=== PATIENT | male | born 1970 | race Two or more races ===

== ENCOUNTER → 2024-04-05 | Outpatient (BNVA) | payer MEDICAID, SELFPAY | END | disposition home or self-care (01) | PROVIDERS: PCP Nurse Practitioner Family; Referring Provider Nurse Practitioner Family; Visit Provider Nurse Practitioner Family | DX: E78.5 Hyperlipidemia, unspecified (principal); I10 Essential (primary) hypertension; R73.03 Prediabetes; Z71.2 Person consulting for explanation of examination or test findings | CPT/HCPCS: 99212; G0463 ==

== ENCOUNTER → 2024-04-06 | Outpatient (BNVA) | payer MEDICAID, SELFPAY | END | disposition home or self-care (01) | PROVIDERS: PCP Nurse Practitioner Family; Referring Provider Nurse Practitioner Family; Visit Provider Nurse Practitioner Family | DX: I10 Essential (primary) hypertension (principal); Z23 Encounter for immunization | CPT/HCPCS: 90471; 90686; 99213 ==

== ENCOUNTER → 2024-06-15 | Outpatient (BNVA) | payer MEDICAID, SELFPAY | END | disposition home or self-care (01) | PROVIDERS: PCP Nurse Practitioner Family; Referring Provider Nurse Practitioner Family; Visit Provider Nurse Practitioner Family | DX: D17.5 Benign lipomatous neoplasm of intra-abdominal organs (principal) | CPT/HCPCS: 99214 ==

== ENCOUNTER → 2024-10-09 | Outpatient (BNVA) | payer MEDICAID, SELFPAY | END | disposition home or self-care (01) | PROVIDERS: PCP Nurse Practitioner Primary Care; Referring Provider Nurse Practitioner Primary Care; Visit Provider Nurse Practitioner Primary Care | DX: Z71.2 Person consulting for explanation of examination or test findings (principal); B96.81 Helicobacter pylori [H. pylori] as the cause of diseases classified elsewhere | CPT/HCPCS: 99212; G0463 ==

== ENCOUNTER → 2024-10-16 | Outpatient (BNVA) | payer MEDICAID, SELFPAY | END | disposition home or self-care (01) | PROVIDERS: PCP Nurse Practitioner Family; Referring Provider Nurse Practitioner Family; Visit Provider Nurse Practitioner Family | DX: Z71.2 Person consulting for explanation of examination or test findings (principal); E78.5 Hyperlipidemia, unspecified; R73.03 Prediabetes; E83.51 Hypocalcemia; I10 Essential (primary) hypertension | CPT/HCPCS: 96372; 99213; A4216; J0696 ==

== ENCOUNTER → 2024-11-09 | Outpatient (BNVA) | payer MEDICAID, SELFPAY | END | disposition home or self-care (01) | PROVIDERS: PCP Nurse Practitioner Family; Referring Provider Nurse Practitioner Family; Visit Provider Nurse Practitioner Family | DX: Z09 Encounter for follow-up examination after completed treatment for conditions other than malignant neoplasm (principal); R10.9 Unspecified abdominal pain; A04.8 Other specified bacterial intestinal infections; N39.0 Urinary tract infection, site not specified; K29.70 Gastritis, unspecified, without bleeding; K21.9 Gastro-esophageal reflux disease without esophagitis | CPT/HCPCS: 99214 ==

== ENCOUNTER → 2024-11-09 | Outpatient (CLI) | payer MEDICAID, SELFPAY ==
--- NOTE | 2024-11-09 10:27 | XR_ITS ---
Examination: Knee, left , 3 views Technique: Knee AP, lateral, oblique 3 views Date and time of exam: November 09, 2024 1039 hours INDICATIONS: Left knee swelling and pain beginning one year ago. FINDINGS: Mild to moderate tricompartment osteoarthritis No fracture Moderate knee effusion IMPRESSION: Mild to moderate tricompartment osteoarthritis
== END | disposition home or self-care (01) ==
PROVIDERS: PCP Nurse Practitioner Family; Referring Provider Nurse Practitioner Family; Visit Provider Nurse Practitioner Family
DX: M17.12 Unilateral primary osteoarthritis, left knee (principal)
CPT/HCPCS: 73562

== ENCOUNTER → 2024-11-13 | Outpatient (BNVA) | payer MEDICAID, SELFPAY | END | disposition home or self-care (01) | PROVIDERS: PCP Nurse Practitioner Family; Referring Provider Nurse Practitioner Family; Visit Provider Nurse Practitioner Family | DX: M17.12 Unilateral primary osteoarthritis, left knee (principal) | CPT/HCPCS: 99212; G0463 ==

== ENCOUNTER → 2024-11-14 | Outpatient (BNVA) | payer MEDICAID, SELFPAY | END | disposition home or self-care (01) | PROVIDERS: PCP Nurse Practitioner Family; Referring Provider Nurse Practitioner Family; Visit Provider Nurse Practitioner Family | DX: N39.0 Urinary tract infection, site not specified (principal); Z71.2 Person consulting for explanation of examination or test findings | CPT/HCPCS: 99212; G0463 ==

== ENCOUNTER → 2024-11-27 | Outpatient (BNVA) | payer MEDICAID, SELFPAY | END | disposition home or self-care (01) | PROVIDERS: PCP Nurse Practitioner Family; Referring Provider Nurse Practitioner Family; Visit Provider Nurse Practitioner Family | DX: M17.12 Unilateral primary osteoarthritis, left knee (principal); Z28.21 Immunization not carried out because of patient refusal; Z23 Encounter for immunization | CPT/HCPCS: 90471; 90677; 99214; G0009 ==

== ENCOUNTER → 2024-11-28 | Outpatient (BNVA) | payer MEDICAID, SELFPAY | END | disposition home or self-care (01) | PROVIDERS: PCP Nurse Practitioner Family; Referring Provider Nurse Practitioner Family; Visit Provider Nurse Practitioner Family | DX: Z71.2 Person consulting for explanation of examination or test findings (principal); N39.0 Urinary tract infection, site not specified | CPT/HCPCS: 99212; G0463 ==

== ENCOUNTER → 2024-12-01 | Outpatient (BNVA) | payer MEDICAID, SELFPAY | END | disposition home or self-care (01) | PROVIDERS: PCP Nurse Practitioner Primary Care; Referring Provider Nurse Practitioner Primary Care; Visit Provider Nurse Practitioner Primary Care | DX: A04.8 Other specified bacterial intestinal infections (principal) | CPT/HCPCS: 99213 ==

== ENCOUNTER → 2024-12-14 | Outpatient (BNVA) | payer MEDICAID, SELFPAY | END | disposition home or self-care (01) | PROVIDERS: PCP Nurse Practitioner Family; Referring Provider Nurse Practitioner Family; Visit Provider Nurse Practitioner Family | DX: Z71.2 Person consulting for explanation of examination or test findings (principal); N39.0 Urinary tract infection, site not specified | CPT/HCPCS: 99212; G0463 ==

== ENCOUNTER → 2025-01-04 | Outpatient (BNVA) | payer MEDICAID, SELFPAY | END | disposition home or self-care (01) | PROVIDERS: PCP Nurse Practitioner Family; Referring Provider Nurse Practitioner Family; Visit Provider Nurse Practitioner Family | DX: Z71.2 Person consulting for explanation of examination or test findings (principal) | CPT/HCPCS: 99212; G0463 ==

== ENCOUNTER → 2025-01-17 | Outpatient (BNVA) | payer MEDICAID, SELFPAY | END | disposition home or self-care (01) | PROVIDERS: PCP Nurse Practitioner Family; Referring Provider Nurse Practitioner Family; Visit Provider Nurse Practitioner Family | DX: E78.5 Hyperlipidemia, unspecified (principal); I10 Essential (primary) hypertension | CPT/HCPCS: 99213 ==

== ENCOUNTER → 2025-02-06 | Outpatient (BNVA) | payer MEDICAID, SELFPAY | END | disposition home or self-care (01) | PROVIDERS: PCP Nurse Practitioner Primary Care; Referring Provider Nurse Practitioner Primary Care; Visit Provider Nurse Practitioner Primary Care | DX: A04.8 Other specified bacterial intestinal infections (principal); L29.0 Pruritus ani; N39.0 Urinary tract infection, site not specified; B95.2 Enterococcus as the cause of diseases classified elsewhere; Z23 Encounter for immunization | CPT/HCPCS: 81001; 90471; 90472; 90686; 90715 ==

== ENCOUNTER 2025-02-15 08:18 | Outpatient (AMB) | payer MEDICAID, SELFPAY ==
[2025-02-15 08:34] VITALS: BP 144/83; PULSE 75; RESP 18; TEMP 36.4; O2SAT 94; BMI 38.9
--- NOTE | 2025-02-15 08:34 | ORTHONT_ITS ---
Vital signs 02/15/25 08:34 Height 1.72 m Height Method Measured Weight 115.439 kg Weight Measurement Method Standing Scale BMI 38.9 BP 144/83 H Blood Pressure Source Automatic Cuff Blood Pressure Location Left Upper Arm Position Sitting Respiration 18 Pulse 75 Pulse Source Monitor Temp 97.5 F Temp Source Temporal Artery Scan Pulse Oximetry (%) 94 L Oxygen Delivery Method Room Air Med/Allergies Allergies & Medications Allergies No Known Allergies Allergy (Verified 02/15/25 08:35) Medication Reconciliation aspirin 81 mg chewable tablet 81 mg PO QDAY #90 tabs 01/17/25 [Rx Confirmed 1 ] losartan 25 mg tablet 25 mg PO QDAY #90 tabs 01/17/25 [Rx Confirmed 02/15/25] pravastatin 20 mg tablet 20 mg PO QHS #90 tabs 01/17/25 [Rx Confirmed 02/15/25] Exam Exam Patient is in no acute distress and is cooperative with the examination today. Breathing is nonlabored. Patient has a normal mood and affect. Bilateral extremities were evaluated and demonstrates sensation intact to light touch. Palpable pedal pulses are present. No significant edema is present. Bilateral hips were examined. The patient has no pain with log roll of the hips. Internal rotation to 30 degrees and external rotation to 30 degrees is painless. Negative FADIR. Right knee was examined today. The right knee is in reasonable alignment. Range of motion from 0-120 degrees. Knee is stable to varus and valgus as well as AP translation with <5mm. Patient has a negative McMurrays. There is no pain with patellofemoral compression and no crepitus noted. The knee is nontender to palpation. Left knee was examined today. The left knee is in varus alignment. Range of motion from 0-115 degrees. Knee is stable to varus and valgus as well as AP translation with <5mm. Patient has a negative McMurrays. There is crepitus of the patellofemoral joint the knee is tender to palpation medially and laterally Assessment and Plan Problem List (1) Arthritis of left knee: Status: Acute Plan: ASSESSMENT AND PLAN 1. Left knee pain: The left knee pain has been present for over 15 years, with symptoms including swelling, stiffness, and crepitus. Previous lying down x-rays were not sufficient for a complete assessment. The pain is likely due to arthritis, characterized by the degeneration of cartilage over time. This condition often results in a rough surface, leading to sensations of popping and cracking. The current x-ray suggests moderate arthritis, but it was taken while he was lying down, which may not provide an accurate representation of the severity of the condition. Weightbearing x-rays of the left knee will be ordered to obtain a more accurate assessment. A cane will be provided to assist with mobility. Discussed the importance of weightbearing x-rays in evaluating the true extent of arthritis. Advised that the cane will help improve walking speed and reduce functional limitations. No knee brace is needed at this time. Encouraged maintaining a healthy weight and engaging in low-impact exercises to support joint health. 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 ([id number]) MA Intake Visit Data Collection New Patient or Established: New Patient (never been to [facility]) Reason for Visit:: OSTEOARTHRITIS LEFT KNEE Seen by Clinical Staff ONLY (RN/MA): No Linux [employer] Engineer Required: Yes PCP or OBGYN visit in last 3 months: Yes Hx Now: No Do You Feel Safe at Home: Yes Authorities Contacted: N/A Questionairres Past Medical History Past Medical History Have you ever been diagnosed with any of the following: Subjective Visit Visit for: new patient and knee (LEFT) Immunization / Flu Flu Vaccine in the Last 12 Months: Yes Flu Vaccine Exclusion Criteria: Already Received History of Present Illness Chief complaint: OSTEOARTHRITIS LEFT KNEE Date of injury / onset of symptoms: 15 YEARS HISTORY OF PRESENT ILLNESS IVinicio, have obtained verbal consent from the patient, to be recorded during this encounter which may include, but not limited to, medical history, examination, treatment plans, and relevant health information.? Patient was informed that recording will be read and reviewed by myself before inclusion in the medical chart. The patient is a 54-year-old male who presents today for evaluation of his left knee. He has been experiencing persistent discomfort in his left knee for over 15 years, while his right knee remains unaffected. The primary concern is the sensation of his knee locking and the accompanying popping sounds, rather than the intensity of the pain. He also reports swelling and stiffness in the area. He is considering the use of a cane due to perceived limitations in his mobility, particularly a decrease in walking speed. Occasionally, he notices a limp in his gait, which he attributes to the pain. He does not believe a knee brace would be beneficial at this time. He has not sought relief through pain medication or physical therapy. An injection was administered previously, but it did not alleviate the symptoms. Personal History Occupation: NONE Pain Pain level (0-10): 0 Pain location: outside (lateral) Pain timing: other (specify) (SWELLING) Associated signs & symptoms: stiffness Ambulatory data Ambulatory device: none Treatments Number of previous injections: 1 Improvement with previous injections: No Number of Physical Therapy sessions: 0 Improvement with PT: No Improvement with NSAIDS: no Review of Systems Review of Systems: All systems negative unless otherwise noted in HPI.
--- NOTE | 2025-02-15 09:00 | XR_ITS ---
EXAMINATION: Bilateral knees 2 views Standing right lateral knee left lateral knee 2 views Right axial knee left XR knee 2 views TECHNIQUE: Bilateral AP knee standing flexion, bilateral AP knee standing 2 views Standing right lateral knee left lateral knee 2 views Right axial knee left XR knee 2 views total 6 views Date and time: February 15, 2025, 0912 hours INDICATIONS: Left knee pain 15 years. FINDINGS: Mild narrowing medial joint space right knee Mild osteoarthritis patellofemoral joint right knee Mild to moderate narrowing medial joint space left knee Moderate to advanced osteoarthritis left patellofemoral joint No fractures IMPRESSION: Mild to moderate narrowing medial joint space left knee Moderate to advanced osteoarthritis left patellofemoral joint
== END 2025-02-15 09:03 | disposition home or self-care (01) ==
PROVIDERS: PCP Nurse Practitioner Family; Referring Provider Nurse Practitioner Family; Supervising Provider Orthopaedic Surgery Adult Reconstructive Orthopaedic Surgery; Visit Provider Orthopaedic Surgery Adult Reconstructive Orthopaedic Surgery
DX: M17.12 Unilateral primary osteoarthritis, left knee (principal)
CPT/HCPCS: 73564; 99204; G0463

== ENCOUNTER 2025-03-13 09:09 | Outpatient (AMB) | payer MEDICAID, SELFPAY ==
[2025-03-13 09:30] VITALS: BP 154/81; PULSE 68; RESP 18; TEMP 36.3; O2SAT 95; BMI 39.4
--- NOTE | 2025-03-13 09:30 | PD.ORTHCLVIS ---
Vital signs 03/13/25 09:30 Height 1.72 m Height Method Measured Weight 116.8 kg Weight Measurement Method Standing Scale BMI 39.4 BP 154/81 H Blood Pressure Source Automatic Cuff Blood Pressure Location Left Upper Arm Position Sitting Respiration 18 Pulse 68 Pulse Source Monitor Temp 97.4 F Temp Source Temporal Artery Scan Pulse Oximetry (%) 95 Oxygen Delivery Method Room Air Med/Allergies Allergies & Medications Allergies No Known Allergies Allergy (Verified 03/13/25 09:32) Medication Reconciliation aspirin 81 mg chewable tablet 81 mg PO QDAY #90 tabs 01/17/25 [Rx Confirmed 03/13/25] losartan 25 mg tablet 25 mg PO QDAY #90 tabs 01/17/25 [Rx Confirmed 03/13/25] pravastatin 20 mg tablet 20 mg PO QHS #90 tabs 01/17/25 [Rx Confirmed 03/13/25] meloxicam 7.5 mg tablet 7.5 mg PO QDAY #45 tabs 03/13/25 [Rx] Exam Exam Patient is in no acute distress and is cooperative with the examination today. Breathing is nonlabored. Patient has a normal mood and affect. Bilateral extremities were evaluated and demonstrates sensation intact to light touch. Palpable pedal pulses are present. No significant edema is present. Bilateral hips were examined. The patient has no pain with log roll of the hips. Internal rotation to 30 degrees and external rotation to 30 degrees is painless. Negative FADIR. Right knee was examined today. The right knee is in reasonable alignment. Range of motion from 0-120 degrees. Knee is stable to varus and valgus as well as AP translation with <5mm. Patient has a negative McMurrays. There is no pain with patellofemoral compression and no crepitus noted. The knee is nontender to palpation. Left knee was examined today. The left knee is in varus alignment. Range of motion from 0-115 degrees. Knee is stable to varus and valgus as well as AP translation with <5mm. Patient has a negative McMurrays. There is crepitus of the patellofemoral joint the knee is tender to palpation medially and laterally X-rays demonstrate an osteophyte on the lateral aspect of the patellofemoral joint. This is where he is tender. Assessment and Plan Problem List (1) Arthritis of left knee: Status: Acute Plan: Patient is a 54-year-old male with a left knee pain and left knee arthritis. He mainly has arthritis of the patellofemoral joint and has a osteophyte on the lateral aspect of the trochlea which is what is bothering him. We discussed anti-inflammatories and injections. He would like to continue with meloxicam at this time. We discussed he is unlikely to need surgery for this. He reports his symptoms of actually improved recently Office Procedures GNS Level of Care Nursing/Assessment Patient Status: Established Patient Nursing Assessment/Reassesment: Medication Reconciliation, Update PMH in EMR and Vital Signs Coordination of Care: Complex Care and Chronic Disease 1-5, Education Complex Pt/Fam, Consent,records obtained, informed consent, Results/Orders obtained and Staff clarify orders Special Needs: Language special needs Established Patient Charge Established Patient Point Assignment: 95 Established Patient Point Charge: Level 3 (80-115) MA Intake Visit Data Collection New Patient or Established: Established Patient (seen at [facility] within 3 years) Reason for Visit:: XRAY RESULTS Seen by Clinical Staff ONLY (RN/MA): No [employer] Grade [employer] Required: Yes PCP or OBGYN visit in last 3 months: Yes Hx Now: No Do You Feel Safe at Home: Yes Authorities Contacted: N/A Questionairres Past Medical History Past Medical History Have you ever been diagnosed with any of the following: Subjective Visit Visit for: follow up visit and knee Immunization / Flu Flu Vaccine in the Last 12 Months: Yes Flu Vaccine Exclusion Criteria: Already Received History of Present Illness Chief complaint: XRAY RESULTS Date of injury / onset of symptoms: 15 YEARS HISTORY OF PRESENT ILLNESS IVinicio, have obtained verbal consent from the patient, to be recorded during this encounter which may include, but not limited to, medical history, examination, treatment plans, and relevant health information.? Patient was informed that recording will be read and reviewed by myself before inclusion in the medical chart. The patient is a 54-year-old male who presents today for evaluation of his left knee. He has been experiencing persistent discomfort in his left knee for over 15 years, while his right knee remains unaffected. The primary concern is the sensation of his knee locking and the accompanying popping sounds, rather than the intensity of the pain. He also reports swelling and stiffness in the area. He is considering the use of a cane due to perceived limitations in his mobility, particularly a decrease in walking speed. Occasionally, he notices a limp in his gait, which he attributes to the pain. He does not believe a knee brace would be beneficial at this time. He has not sought relief through pain medication or physical therapy. An injection was administered previously, but it did not alleviate the symptoms. Since we last saw him, he reports his symptoms are getting better. The pain has been in the outer aspect of his knee. Personal History Occupation: NONE Pain Pain level (0-10): 0 Pain location: outside (lateral) Pain timing: other (specify) (SWELLING) Associated signs & symptoms: stiffness Ambulatory data Ambulatory device: none Treatments Number of previous injections: 1 Improvement with previous injections: No Number of Physical Therapy sessions: 0 Improvement with PT: No Improvement with NSAIDS: no Review of Systems Review of Systems: All systems negative unless otherwise noted in HPI.
== END 2025-03-13 09:48 | disposition home or self-care (01) ==
LOC: HODSRG 09:09
PROVIDERS: PCP Nurse Practitioner Primary Care; Referring Provider Nurse Practitioner Primary Care; Supervising Provider Orthopaedic Surgery Adult Reconstructive Orthopaedic Surgery; Visit Provider Orthopaedic Surgery Adult Reconstructive Orthopaedic Surgery
DX: M25.562 Pain in left knee (principal); M17.12 Unilateral primary osteoarthritis, left knee; M25.762 Osteophyte, left knee
CPT/HCPCS: 99213; G0463

== ENCOUNTER → 2025-03-27 | Outpatient (BNVA) | payer MEDICAID, SELFPAY | END | disposition home or self-care (01) | PROVIDERS: PCP Nurse Practitioner Family; Referring Provider Nurse Practitioner Family; Visit Provider Nurse Practitioner Family | DX: I10 Essential (primary) hypertension (principal) | CPT/HCPCS: 99214 ==

== ENCOUNTER → 2025-04-10 | Outpatient (BNVA) | payer MEDICAID, SELFPAY | END | disposition home or self-care (01) | PROVIDERS: PCP Nurse Practitioner Family; Referring Provider Nurse Practitioner Family; Visit Provider Nurse Practitioner Family | DX: I10 Essential (primary) hypertension (principal); Z76.0 Encounter for issue of repeat prescription; E78.5 Hyperlipidemia, unspecified; R73.03 Prediabetes | CPT/HCPCS: 99213; 99214 ==

== ENCOUNTER → 2025-04-25 | Outpatient (BNVA) | payer MEDICAID, SELFPAY | END | disposition home or self-care (01) | PROVIDERS: PCP Nurse Practitioner Family; Referring Provider Nurse Practitioner Family; Visit Provider Nurse Practitioner Family | DX: E78.5 Hyperlipidemia, unspecified (principal); R73.03 Prediabetes; Z71.2 Person consulting for explanation of examination or test findings | CPT/HCPCS: 99212; G0463 ==